=== PATIENT | male | born 1980 | race Caucasian/White ===

== ENCOUNTER 2021-02-22 09:08 | Emergency (ER) | payer MEDICARE, MEDICAID ==
[~2021-02-22] VITALS: Ht 188 cm; Wt 194.0 kg
[~2021-02-22 09:08] MED LIST: CLIN150C15 PO; HYDR-3248 PO; IBUP1TAB5 PO; RANI-460 PO
--- NOTE | 2021-02-22 09:19 | NUR ---
fixed capital clerk note: EKG done in triage, reviewed with provider
--- NOTE | 2021-02-22 09:39 | NUR ---
PT AMBULATED TO ROOM FROM TRIAGE. PT STATED THAT THIS MORNING WHILE DRIVING, HE STARTED TO FEEL LIGHTHEADED AND DIZZY. DURING THAT TIME HE ALSO FELT SOME CHEST TIGHTNESS THAT RESOLVED AFTER THE LIGHTHEADEDNESS RESOLVED. PT DENIES ANY CURRENT CP/TIGHTNESS OR FEELINGS OF DIZZINESS/ LIGHTHEADEDNESS. PT DENIES AND N/V, RECENT COUGH OR FEVER.
[2021-02-22 10:29] VITALS: BP 143/81
--- NOTE | 2021-02-22 10:30 | NUR ---
PT RESTING IN [facility]. PT DENIES ANY CP OR TIGHTNESS AT THIS TIME. CALL LIGHT WITHIN REACH.
[2021-02-22 10:40] LABS: BASOPHILS % (AUTO) 1 % (0-1); EOSINOPHILS % (AUTO) 1 % (1-7); LYMPHOCYTES % (AUTO) 24 % (22-44); MEAN CORPUSCULAR HEMOGLOBIN 30.2 pg (27.5-34.5); MEAN CORPUSCULAR HGB CONC 34.2 g/dL (33.2-36.2); MEAN PLATELET VOLUME 7.9 fL (7.4-10.4); MONOCYTES % (AUTO) 8 % (2-9); NEUTROPHILS % (AUTO) 67 % (42-75); PLATELET COUNT 248 x10^3/uL (130-400); RED BLOOD COUNT 5.09 x10^6/uL (4.38-5.82); RED CELL DISTRIBUTION WIDTH 14.1 % (9.4-14.8)
[2021-02-22 10:49] LABS: ALANINE AMINOTRANSFERASE 54 U/L (12-78); ALBUMIN 3.6 g/dL (3.4-5.0); ANION GAP 6 mmol/L (5-15); CHLORIDE 110 mmol/L (98-107); CREATININE 0.98 mg/dL (0.7-1.3)
[2021-02-22 10:54] LABS: ALKALINE PHOSPHATASE 90 U/L (45-117); BILIRUBIN,TOTAL 0.5 mg/dL (0.2-1.0); TROPONIN I < 0.015 ng/mL (0.000-0.045)
--- NOTE | 2021-02-22 11:53 | NUR ---
DISCHARGE ISNTRUCTIONS REVIEWED WITH PT. ALL QUESTIONS ANSWERED AT THIS TIME
== END 2021-02-22 11:55 | disposition home or self-care (01) ==
LOC: ED 09:56
DX: R07.89 Other chest pain (principal); R42 Dizziness and giddiness
CPT/HCPCS: 36415; 71045; 80053; 83735; 84484; 85025; 93005; 99285